=== PATIENT | male | born 1980 | race Caucasian/White ===

== ENCOUNTER 2020-09-04 07:17 | Emergency (ER) | payer SELFPAY ==
--- NOTE | 2020-09-04 07:21 | ECG_ITS ---
[facility] Test Date: 2020-09-04 Pat Name: Kenrick Burton Department: Room: Gender: Male Floor Specialist: : 1980 Requested By: Alden Cheng Order Number: [id number] Halima MD: CLAUDIA GUZMAN Measurements Intervals [place] Rate: 61 P: 55 NM: 198 QRS: 42 QRSD: 88 T: 41 QT: 399 QTc: 404 Interpretive Statements SINUS RHYTHM No previous ECG available for comparison Electronically Signed On 09-04-2020 19:30:35 MARKET MANAGER by CLAUDIA GUZMAN [id number]
[2020-09-04 07:35] VITALS: BP 155/88; PULSE 66; RESP 18; TEMP 36.2; O2SAT 97; BMI 29.7
--- NOTE | 2020-09-04 07:36 | W.ED.ABDPA2 ---
HPI - Abdominal Pain General: Chief Complaint: Dizziness Stated Complaint: Dizziness, Throwing up Time Seen by Provider: 09/04/20 07:35 Source: patient Mode of arrival: ambulatory Limitations: no limitations History of Present Illness: HPI narrative: Patient presents today with complaints of acute onset of severe dizziness with nausea and vomiting starting this morning. Patient has a history of hypertension in which he takes lisinopril and metoprolol. Patient reports dizziness is severe and is aggravated by any movement. Patient reports the room continues to spin when he is laying in bed. Patient denies any headache or chest pain or changes in hearing. Patient appears mildly unwell. Patient appears in no pain. Patient reports no surgeries or other medical conditions. Review of Systems General: Reports: 10 or more systems reviewed and unremarkable except in HPI and below Neuro: Reports: vertigo Physical Exam Const: COMMON NORMALS: no acute distress and patient oriented x3 GENERAL APPEARANCE: cooperative HENMT: COMMON NORMALS: normocephalic, TM's normal bilaterally and Normal external nose present HEAD & SCALP: normal to inspection and normocephalic NOSE: Normal external nose present TYMPANIC MEMBRANE: TM's normal bilaterally MOUTH: Normal oral and palatal mucosa present Eye: GENERAL EYE: appearance normal, both eyes and all related structures Neck/C-Spine: COMMON NORMALS: full ROM Lymph: LYMPHATIC: no lymphadenopathy noted Chest: COMMONS NORMALS: normal inspection of the chest Resp: COMMON NORMALS: normal respiratory effort EFFORT & INSPECTION: Yes able to speak in complete sentences Cardio: COMMON NORMALS: regular rate and regular rhythm RATE: regular rate RHYTHM: regular rhythm GI: COMMON NORMALS: non-tender Back/Pelvis: COMMON NORMALS: thoracic and lumbar spine normal to inspection Extremity: COMMON NORMALS: normal to inspection Neuro: COMMON NORMALS: patient oriented x3 and moves all extremities Psych: COMMON NORMALS: mental status grossly normal and cooperative Skin: COMMON NORMALS: no rashes or lesions noted GENERAL SKIN EXAM: no rashes or lesions noted Course ED course: 840, patient CT scan was normal without any signs of hemorrhage or infarct at this time. Patient continues to be dizzy while lying in bed. Patient so far has had 4 of Zofran and 12-1/2 of Benadryl. We will administer 2 mg of Haldol with 60 mg of methylprednisolone, to treat for vestibular neuritis. Vital Signs: Vital signs: Vital Signs Temperature 97.2 F L 09/04/20 07:35 Pulse Rate 54 L 09/04/20 09:29 Respiratory Rate 18 09/04/20 09:29 Blood Pressure 118/80 09/04/20 09:29 Pulse Oximetry 97 09/04/20 09:29 MDM - Abdominal Pain MDM Narrative: Medical decision making narrative: 40-year-old male comes in today for complaints of severe nausea and vomiting with dizziness onset this morning. Exam notes lungs clear to auscultation, regular heart rate, EKG sinus rhythm, abdomen soft nontender, bilateral tympanic membranes are normal, pupils are equal and reactive, no focal neural deficits are noted. Vital signs are normal except for some mild systolic hypertension. Differential diagnosis includes vestibular neuritis, cerebellar hemorrhage or infarction, brainstem infarction, gastroenteritis. Laboratory values were unremarkable. CT of the head showed no intracranial bleeding or sign of infarct, did have some mild sinusitis. Patient appears to have vestibular neuritis we will start patient on methylprednisolone continue that for 1 week. Patient will be given 3 days worth of meclizine discussed recommendations for further treatment and follow-up. Patient reported understanding agreed to plan. Lab Data: Labs: Lab Results 09/04/20 09/04/20 Range/Units 08:10 08:10 WBC 12.5 H (4.0-10.0) 10^3/ uL RBC 5.20 (4.1-5.3) 10^6/u L Hgb 15.9 (11.7-16.6) g/dL Hct 49.2 (42.0-52.0) % MCV 94.6 H (80-94) fL MCH 30.6 (28.0-34.0) pg MCHC 32.3 (30.0-36.0) g/dL RDW 13.4 (12.1-15.1) % Plt Count 310 (130-400) 10^3/c mm MPV 10.0 (7.4-10.4) fL Neut % (Auto) 79.5 % Lymph % (Auto) 11.4 % Kleberg % (Auto) 6.1 % Eos % (Auto) 2.2 % Baso % (Auto) 0.3 % Neut # (Auto) 9.96 H (1.8-7.7) 10^3/u L Lymph # (Auto) 1.4 (0.8-4.8) 10^3/u L Kleberg # (Auto) 0.8 (0.2-0.9) 10^3/u L Eos # (Auto) 0.3 (0.0-0.8) 10^3/u L Baso # (Auto) 0.0 (0.0-0.1) 10^3/u L Nucleated RBC % (a uto) 0 % Nucleated RBCs # 0.0 /100WBC Sodium 137 (136-145) mmol/L Potassium 4.6 (3.5-5.1) mmol/L Chloride 102 (98-107) mmol/L Carbon Dioxide 27 (22-29) mmol/L Anion Gap 12.6 (5-19) BUN 22 H (6-20) mg/dL Creatinine 0.9 (0.7-1.2) mg/dL GFR Calculation 93.5 (90-130) mL/min Glucose 120 H (65-115) mg/dL Calculated Osmolal ity 289 (285-295) mOsm/k g Calcium 9.1 (8.5-10.5) mg/dL Total Bilirubin 0.2 (0.15-1.2) mg/dL AST 13 (0-40) U/L ALT 18 (0-41) U/L Alkaline Phosphata se 71 (40-130) IU/L Total Protein 7.3 (6.6-8.7) g/dL Albumin 4.1 (3.5-5.2) g/dL Globulin 3.2 (1.3-4.6) g/dL EKG Data ^: EKG 1: Attestation: I personally reviewed and interpreted this EKG as follows: (755, EKG shows normal sinus rhythm, regular rate at 61 bpm, no ectopy, no ST elevation. No prior exam is available for comparison.) Discharge Plan Discharge Patient Disposition: Home Clinical Impression: Acute vestibular neuronitis Qualifiers: Laterality: unspecified laterality Qualified Code(s): H81.20 - Vestibular neuronitis, unspecified ear Condition: Stable Prescriptions: New Medrol (Lee) 4 mg tablets,dose pack See Rx Instructions .ROUTE .COMPLEX Qty: 21 RF: 0 meclizine 25 mg tablet 25 mg PO TID Qty: 9 RF: 0 Discharge Orders: Discharge ED (Routine); Ordered 09/04/20 Ordered By: Ervin Narvaez Discharge Diet: Usual diet Discharge Activity: Limit activity as instructed Patient Instructions: Dizziness (ED) Activity Restrictions/Additional Instructions: As discussed this condition usually improves after 3 days. Dizziness may persist up to 2 weeks ago. You need to take time changing position. Drink plenty of fluids. Continue with your routine medications as directed. Follow-up with primary care in 3 days for recheck. Take steroid medication as directed. Return to the emergency department for new concerns. Stand Alone Forms: Work/School Release Coding Level of Care Code ED Drilling Machine Operator for Vivg Fwd Exam Comprehensive
--- NOTE | 2020-09-04 07:51 | CT_ITS ---
WS: [id number] CT HEAD TECHNIQUE: Noncontrast CT of the head obtained from the skullbase to the vertex. CLINICAL INFORMATION: acute dizziness COMPARISON: None. DLP: 842.[address] scans at [facility] use at least one of these dose optimization techniques: automat ed exposure control; mA and/or kV adjustment per patient size (includes targeted exams where dose is matched to clinical indication); or iterative reconstruction. FINDINGS: No evidence of intracranial hemorrhage or mass effect. Ventricular system and basal cisterns are machado nt No extra-axial fluid collections. No evidence of mass or mass effect. Normal bhatt-white differenti ation. Mucosal thickening in the ethmoid air cells and maxillary sinuses. Mastoid air cells are well aerated . CT/CT head wo con* [id number] IMPRESSION: 1. No evidence of intracranial hemorrhage or mass effect. 2. Mild mucosal thickening paranasal sinuses. 3. No acute intracranial findings.
[2020-09-04] MEDS: sodium chloride 0.9% 1,000 ML 999 ML IV (08:05)
[2020-09-04] MEDS: ondansetron 2 mg/ML SDV 2 mL 4 MG IVP (08:07)
[2020-09-04] MEDS: diphenhydrAMINE 50 mg/mL SDV 1mL 12.5 MG IVP (08:07)
[2020-09-04 08:23] LABS: Basophils % 0.3 %; Eosinophils # 0.3 10^3/uL (0.0-0.8); Eosinophils % 2.2 %; Hematocrit 49.2 % (42.0-52.0); Hemoglobin 15.9 g/dL (11.7-16.6); Lymphocytes # 1.4 10^3/uL (0.8-4.8); Lymphocytes % 11.4 %; Mean Corpuscular HGB Conc 32.3 g/dL (30.0-36.0); Mean Corpuscular Hemoglobin 30.6 pg (28.0-34.0); Mean Corpuscular Volume 94.6 fL (80-94); Monocytes # 0.8 10^3/uL (0.2-0.9); Monocytes % 6.1 %; Neutrophils # 9.96 10^3/uL (1.8-7.7); Neutrophils % 79.5 %; Nucleated Red Blood Cells % 0 %; Platelet Count 310 10^3/cmm (130-400); Red Cell Distribution Width 13.4 % (12.1-15.1); White Blood Count 12.5 10^3/uL (4.0-10.0)
[2020-09-04] MEDS: haloperidol inj 5 mg/mL INJ 1 mL 2 MG IVP (08:53)
[2020-09-04 09:03] LABS: Alanine Aminotransferase 18 U/L (0-41); Albumin Level 4.1 g/dL (3.5-5.2); Alkaline Phosphatase 71 IU/L (40-130); Anion Gap 12.6 (5-19); Aspartate Amino Transferase 13 U/L (0-40); Blood Urea Nitrogen 22 mg/dL (6-20); Calcium 9.1 mg/dL (8.5-10.5); Carbon Dioxide 27 mmol/L (22-29); Chloride 102 mmol/L (98-107); Globulin 3.2 g/dL (1.3-4.6); Glomerular Filtration Rate 93.5 mL/min (90-130); Glucose 120 mg/dL (65-115); Osmolality Calculated 289 mOsm/kg (285-295); Potassium 4.6 mmol/L (3.5-5.1); Sodium 137 mmol/L (136-145); Total Bilirubin 0.2 mg/dL (0.15-1.2); Total Protein 7.3 g/dL (6.6-8.7)
[2020-09-04 09:08] VITALS: BP 122/76
[2020-09-04 09:21] VITALS: BP 122/76; BP 125/94; BP 130/84; PULSE 65; PULSE 76
[2020-09-04 09:29] VITALS: BP 118/80; PULSE 54; RESP 18; O2SAT 97
[2020-09-04 10:02] VITALS: BP 118/80; PULSE 52; RESP 14; O2SAT 94
== END 2020-09-04 10:02 | disposition home or self-care (01) ==
PROVIDERS: Family Medicine; Emergency Provider Nurse Practitioner Family
DX: H81.20 Vestibular neuronitis, unspecified ear (principal)
CPT/HCPCS: 12345; 70450; 80053; 85025; 93005; 96361; 96374; 96375; 99282; 99284; J1200; J1630; J2405; J2930; J7030

== ENCOUNTER → 2020-11-10 08:33 | Outpatient (BNVA) | payer SELFPAY | PROVIDERS: PCP Nurse Practitioner Family; Visit Provider Nurse Practitioner Family | DX: I10 Essential (primary) hypertension (principal); J32.9 Chronic sinusitis, unspecified | CPT/HCPCS: 80053; 80061 ==

== ENCOUNTER 2025-01-10 06:43 | Outpatient (CLI) | payer OTHER, SELFPAY ==
--- NOTE | 2025-01-10 06:47 | USCV_ITS ---
Kenrick Burton Age: 44 Gender: M : 1980 Exam Date: 01/10/2025 06:59 Ordering Phys: Marjorie Estrella Technologist: GRECIA Exam Location: [facility] [place] Indication: HTN BP: 150 / 70 HR: 59 Rhythm: Sinus Technical Quality: Adequate MEASUREMENTS (Male / Female) Normal Values 2D ECHO LV Diastolic Diameter PLAX 4.2 cm 4.2 - 5.9 / 3.9 - 5.3 cm IVS Diastolic Thickness 0.8 cm 0.6 - 1.0 / 0.6 - 0.9 cm IVS Systolic Thickness 1.8 cm LVPW Diastolic Thickness 1.0 cm 0.6 - 1.0 / 0.6 - 0.9 cm LVPW Systolic Thickness 1.4 cm LVOT Diameter 2.1 cm LV Ejection Fraction 2D Teich 52.4 % LV Ejection Fraction MOD 4C 64.9 % LV Ejection Fraction MOD 2C 63.2 % LV Ejection Fraction 2C AL 63.7 % LA Diameter 3.6 cm RA Systolic Volume 4C AL 34.2 ml RA Systolic Volume 4C MOD 33.3 ml LA Sys Volume AL 31.8 cm cubed LA Sys Volume Index AL 14.8 cm cubed/m squared Aorta at Sinotubular Diameter 2.6 cm IVC Diameter 2.1 cm M-MODE LA Ao Ratio MM 1.9 AV Cusp Separation MM 1.8 cm DOPPLER AV Peak Velocity 114.0 cm/s LVOT Peak Velocity 113.0 cm/s AV Area Cont Eq vti 3.8 cm squared AV Area Cont Eq pk 3.4 cm squared MV Peak Velocity 87.0 cm/s MV Area PHT 4.5 cm squared Mitral E to A Ratio 0.9 TR Peak Velocity 88.0 cm/s TR Peak Gradient 3.1 mmHg TV Peak E Velocity 66.0 cm/s PV Peak Velocity 101.0 cm/s FINDINGS Left Ventricle Left atrial is normal in size. LV systolic function is normal with EF of 60 to 65%. No regional wall motion abnormalities are seen. Grade 1 diastolic dysfunction. Right Ventricle Normal in size and function Right Atrium Normal in size Left Atrium Normal in size Mitral Valve Structurally normal mitral valve. Mild mitral regurgitation. Aortic Valve Structurally normal aortic valve. No significant stenosis or regurgitation. Tricuspid Valve Insufficient TR jet to evaluate RVSP Pulmonic Valve Not well visualized Pericardium Normal Aorta Normal in size IVC Appears to be normal CONCLUSIONS LV systolic function is normal with EF of 60-65%. Grade 1 diastolic dysfunction. Mild mitral regurgitation. No comparison studies are available. Varghese Roth MD (Electronically Signed) Final Date: 23 January 2025 14:18 S
== END 2025-01-10 06:44 | disposition home or self-care (01) ==
PROVIDERS: PCP Nurse Practitioner Family; Visit Provider Nurse Practitioner Family
DX: I10 Essential (primary) hypertension (principal); R93.1 Abnormal findings on diagnostic imaging of heart and coronary circulation; I34.0 Nonrheumatic mitral (valve) insufficiency
CPT/HCPCS: 93306